=== PATIENT | male | born 1960 | race Caucasian/White ===

== ENCOUNTER 2018-06-20 20:35 | Inpatient (IN) | payer OTHER ==
[~2018-06-20] VITALS: Ht 177.8 cm; Wt 151.5 kg
[2018-06-20 20:35] VITALS: BP 161/93
--- NOTE | 2018-06-20 20:38 | NUR ---
PT GRETA ALS. TAKEN TO BED 9
--- NOTE | 2018-06-20 20:43 | NUR ---
X-Ray at bedside.
--- NOTE | 2018-06-20 20:45 | NUR ---
57 y/o M biba with c/o chest pain x 1 day. AAOx4. 11/21 pain, sharp and constant. Pain radiates to L shoulder. Numbness to L arm. R hand grasp greater than L hand grasp. tremor to R arm. c/o SOB. bilateral lung camacho clear. O2 saturation at 98% on room air. Bedrail x2 up. Bed in lowest postion. ERMD notified. Will continue to monitor.
--- NOTE | 2018-06-20 20:47 | NUR ---
Dr. Hernandez evaluating patient at bedside.
[2018-06-20] MEDS ORDERED: ASPI-1718 PO (21:00)
[2018-06-20] MEDS ORDERED: LANTUS SUBQ (21:00)
[2018-06-20] MEDS ORDERED: PRIM250T70 PO (21:00)
[2018-06-20] MEDS ORDERED: CLON0.1T42 PO (21:00)
[2018-06-20] MEDS ORDERED: OMEP20TC10 PO (21:00)
[2018-06-20] MEDS ORDERED: ACET-512 PO (21:00)
[2018-06-20] MEDS ORDERED: ACET-2619 PO (21:00)
[2018-06-20] MEDS ORDERED: SITA100T8 PO (21:00)
[2018-06-20] MEDS ORDERED: GABA300C PO (21:00)
[2018-06-20] MEDS ORDERED: ATOR10TA PO (21:00)
[2018-06-20] MEDS ORDERED: CARV12.5 PO (21:00)
[2018-06-20] MEDS ORDERED: METF1000 PO (21:00)
[2018-06-20 21:03] LABS: BASOPHILS # (AUTO) 0.1 K/uL (0.00-0.22); BASOPHILS % (AUTO) 0.7 % (0.0-2.0); EOSINOPHILS # (AUTO) 0.5 K/uL (0-0.4); EOSINOPHILS % (AUTO) 4.4 % (0.0-4.0); HEMATOCRIT 32.5 % (36-52); HEMOGLOBIN 10.3 g/dL (12.0-18.0); LYMPHOCYTES # (AUTO) 1.8 K/uL (2.0-11.5); LYMPHOCYTES % (AUTO) 15.4 % (20.5-51.1); MEAN CORPUSCULAR HEMOGLOBIN 22 pg (27-31); MEAN CORPUSCULAR HGB CONC 32 g/dL (33-37); MEAN CORPUSCULAR VOLUME 70.5 fL (80-94); MONOCYTES # (AUTO) 0.6 K/uL (0.8-1.0); MONOCYTES % (AUTO) 5.1 % (1.7-9.3); NEUTROPHILS # (AUTO) 8.7 K/uL (1.8-7.7); NEUTROPHILS % (AUTO) 74.4 % (42.2-75.2); PLATELET COUNT (AUTO) 336 K/uL (140-450); RED BLOOD CELL COUNT(AUTO) 4.61 MIL/uL (4.20-6.10); RED CELL DISTRIBUTION WIDTH 21.9 % (11.6-13.7); WHITE BLOOD COUNT (AUTO) 11.8 K/uL (4.8-10.8)
[2018-06-20 21:12] LABS: ANION GAP 9.8 (8-16); CARBON DIOXIDE 30.8 mmol/L (21-32); CREATININE 1.5 mg/dL (0.7-1.3); POTASSIUM 4.6 mmol/L (3.5-5.1)
[2018-06-20] MEDS ORDERED: MORPHINE SULFATE 4 MG/ML SYR IVP ONE (21:15)
[2018-06-20 21:18] LABS: ALBUMIN 2.7 g/dL (3.4-5.0); TOTAL BILIRUBIN 0.3 mg/dL (0.0-1.0)
[2018-06-20] MEDS ORDERED: NACL 0.9% 1,000 ML IV ONE (21:25)
--- NOTE | 2018-06-20 22:55 | NUR ---
RECEIVED REPORT FROM ED NURSE. PT AAOX4 LEFT SIDED WEAKNESS, NUMBNESS TO LEFT UPPER EXTREMITY/SHOULDER NOTED. PT STATES HE C/O CP, RADIATING TO LEFT SHOULDER PRESSURE. NSR 80-90S BPM, HYPERTENSIVE SBP 170S. NO EDEMA NOTED. +2 RADIAL PULSES, +1 PEDAL PULSES. ABD SOFT NON DISTENDED, LAST BM 06/20. PT VOIDING CLEAR YELLOW URINE. SKIN NON INTACT, MID LOWER ABD CLOSED WOUND NOTED. IV 20G TO R UPPER ARM NOTED. WILL UPDATE MD WILL CONTINUE TO MONITOR.
--- NOTE | 2018-06-20 22:57 | NUR ---
Patient will be admitted to care of . Admitted MST. Will go to room ICU 2 as telemetry overflow. VSS at time of transfer. Belongings list completed. Report to BE White. Transfer of care at this time.
[2018-06-20] MEDS ORDERED: NITROGLYCERIN 0.4 MG TAB SL PRN (23:35)
[2018-06-20] MEDS ORDERED: ACETAMINOPHEN 325 MG TAB PO PRN (23:35)
[2018-06-20] MEDS ORDERED: ONDANSETRON 4 MG/2 ML VIAL IVP PRN (23:35)
[2018-06-20] MEDS ORDERED: oxyCODONE/APAP 5/325 MG 1 TAB TAB PO PRN (23:55)
[2018-06-21] VITALS (9 sets, daily range): BP systolic 121–202; BP diastolic 62–113
--- NOTE | 2018-06-21 | NUR ---
CPAP EQUIPMENT PLACED AT BEDSIDE PER CPAP Q ORDERS. PATIENT STATES HE WILL CALL WHEN HES READY TO WEAR CPAP FOR BED. NO RESPIRATORY DISTRESS NOTED AT THIS TIME. WILL CONTINUE TO MONITOR. Addendum: 06/21/18 at 0627 by Tessa Boyce RT PATIENT STATES HE WEARS BIPAP AT NIGHT, NOT CPAP. WILL ADJUST SETTINGS ACCORDINGLY FOR PATIENT COMFORT AND TO MAINTAIN OXYGENATION PER ORDER. SATS >92%
[2018-06-21] MEDS ORDERED: CARVEDILOL 12.5 MG TAB PO SCH ×3 (00:30→21:00)
[2018-06-21] MEDS ORDERED: GABAPENTIN 300 MG CAP PO SCH (00:30)
[2018-06-21] MEDS: HYDROmorphone 1 MG/ML AMP IVP PRN ×2 (01:07→09:00)
--- NOTE | 2018-06-21 01:20 | NUR ---
TRANSPORTED TO CT SCAN.
--- NOTE | 2018-06-21 01:35 | NUR ---
PT TRANSPORTED BACK FROM CT.
--- NOTE | 2018-06-21 02:00 | NUR ---
PT AWAKE; DENIES CP @ THIS TIME. NO S/S OF ACUTE DISTRESS. WILL CONTINUE TO OBSERVE.
[2018-06-21] MEDS: SODIUM CHLORIDE FLUSH 10 ML SYR IVF SCH ×3 (05:28→21:00)
[2018-06-21 05:43] LABS: ALBUMIN 2.4 g/dL (3.4-5.0); ANION GAP 8.8 (8-16); CARBON DIOXIDE 30.5 mmol/L (21-32); CREATININE 1.3 mg/dL (0.7-1.3); POTASSIUM 4.3 mmol/L (3.5-5.1); TOTAL BILIRUBIN 0.3 mg/dL (0.0-1.0)
[2018-06-21] MEDS: oxyCODONE/APAP 5/325 MG 1 TAB TAB PO PRN ×2 (05:58→17:22)
--- NOTE | 2018-06-21 05:58 | NUR ---
PT C/O 07/22 PAIN MEDICATED WITH PRN OXYCODONE. WILL CONTINUE TO MONITOR.
[2018-06-21 06:26] LABS: BASOPHILS % (AUTO) 0.4 % (0.0-2.0); EOSINOPHILS # (AUTO) 0.5 K/uL (0-0.4); EOSINOPHILS % (AUTO) 5.1 % (0.0-4.0); HEMATOCRIT 30.9 % (36-52); LYMPHOCYTES # (AUTO) 1.6 K/uL (2.0-11.5); LYMPHOCYTES % (AUTO) 15.8 % (20.5-51.1); MEAN CORPUSCULAR HEMOGLOBIN 23 pg (27-31); MEAN CORPUSCULAR HGB CONC 32 g/dL (33-37); MEAN CORPUSCULAR VOLUME 70.6 fL (80-94); MONOCYTES # (AUTO) 0.5 K/uL (0.8-1.0); MONOCYTES % (AUTO) 5.3 % (1.7-9.3); NEUTROPHILS # (AUTO) 7.3 K/uL (1.8-7.7); NEUTROPHILS % (AUTO) 73.4 % (42.2-75.2); PLATELET COUNT (AUTO) 289 K/uL (140-450); RED BLOOD CELL COUNT(AUTO) 4.37 MIL/uL (4.20-6.10); RED CELL DISTRIBUTION WIDTH 21.8 % (11.6-13.7)
[2018-06-21] MEDS: INSULIN LISPRO SLIDING SCALE 100 UNITS/ML VIAL SUBQ PRN ×4 (06:27→21:38)
[2018-06-21] MEDS: BLOOD GLUCOSE MONITORING 1 DEV DEV FS SCH ×4 (06:28→21:36)
--- NOTE | 2018-06-21 06:40 | NUR ---
REASSESSED PAIN: PT NOW ASLEEP IN BED; FLACC 0. PT AROUSABLE DENIES PAIN @ THIS TIME
[2018-06-21] MEDS: cloNIDine 0.1 MG TAB PO PRN ×2 (06:43→17:30)
--- NOTE | 2018-06-21 07:20 | NUR ---
ENDORSED CARE TO DAY SHIFT FOR CONTINUITY OF CARE.
--- NOTE | 2018-06-21 07:40 | NUR ---
TRANSFERRED PATIENT TO TELEMETRY UNIT VIA WHEEL STEVEN, TELEMETRY BOX, BELONGINGS SENT WITH PATIENT Addendum: 06/21/18 at 0805 by Allison Walker RN CHAIR
--- NOTE | 2018-06-21 07:55 | NUR ---
REPORT GIVEN TO BUSINESS TRAINER. PATIENT ALERT ORIENTED, ON ROOM AIR 202 95%, SINUS 90 BPM, IV LINE RIGHT UPPER ARM IN SITU.
--- NOTE | 2018-06-21 07:56 | NUR ---
RECEIVED BEDSIDE REPORT FROM ICU NURSE. PATIENT IS AWAKE, ALERT AND ORIENTEDX4. NO SIGNS OF DISTRESS ON RA. PATIENT HAS WEAKNESS, AMBULATE W ASSIST. FALL RISK PROTOCOL IN PLACE, PATIENT HAS NO YELLOW GOWN, PATIENT IS OBESE. TELE MONITOR IN PLACE. SKIN IS INTACT. VLADIMIR 20G SL. CLEAN, DRY AND INTACT. PATIENT IS CONTINENT. BED IN LOW POSITION. CALL LIGHT WITHIN REACH. PATIENT ABLE TO MAKE NEEDS KNOWN
--- NOTE | 2018-06-21 08:37 | NUR ---
PATIENT HAS BEEN SCREENED AND CATEGORIZED HIGH NUTRITION RISK. PATIENT WILL BE SEEN WITHIN 1-2 DAYS OF ADMISSION. 06/21/18-06/22/[address]
[2018-06-21] MEDS: PRIMIDONE 50 MG TAB PO SCH ×2 (08:52→21:36)
[2018-06-21] MEDS: metFORMIN 500 MG TAB PO SCH ×2 (08:53→17:17)
[2018-06-21] MEDS: ASPIRIN 81 MG TAB.CHEW PO SCH (08:53)
--- NOTE | 2018-06-21 09:01 | NUR ---
ADMINISTERED MEDS. PATIENT TOLERATED WELL. GAVE PRN PAIN MED. EDUCATED ON SIDE EFFECTS. EKG DONE. WILL CONTINUE TO MONITOR THE PATIENT
--- NOTE | 2018-06-21 11:00 | NUR ---
patient sitting in bed. no signs of distress. will continue to monitor
--- NOTE | 2018-06-21 12:37 | NUR ---
PT SITTING UP IN BED EATING LUNCH. NO OBVIOUS SIGNS OF DISTRESS AND NO REQUESTS FROM PT.
--- NOTE | 2018-06-21 13:30 | NUR ---
administered [facility] med. patient tolerated well. will continue to monitor the patient
--- NOTE | 2018-06-21 13:34 | NUR ---
ARRANGED TRANSPORT WITH [facility], SOFTWARE ENGINEERING ANALYST TIME WILL 5 PM NOTIFIED SHANELLE LR
--- NOTE | 2018-06-21 15:45 | NUR ---
CALLED SPOKE WITH KAELYN NOTIFIED HER THAT DISCHARGE IS HOLD FOR TODAY AND PLACE IT WILL CALL FOR TOMORROW CAN USE THE SAME AUTH #.
--- NOTE | 2018-06-21 15:51 | NUR ---
PATIENT SITTING IN BED. NO SIGNS OF DISTRESS. WILL CONTINUE TO MONITOR
--- NOTE | 2018-06-21 15:52 | NUR ---
AUTH# FOR THE [facility] JODI [id number]
--- NOTE | 2018-06-21 16:23 | NUR ---
06/21/18 RD INITIAL ASSESSMENT COMPLETED PLEASE REFER TO NUTRITION ASSESSMENT UNDER CARE ACTIVITY FOR ESTIMATED NUTRITIONAL NEEDS. 1. CONTINUE CARDIAC AND CCHO 60 GM DIET TOLERATED 2. RD OFFER NUTRITION EDUCATION FOR DIABETES, PT DECLINED AT THE MOMENT. WILL FOLLOW UP ON NEXT VISIT 3. RD TO FOLLOW-UP 3-5 DAYS, MODERATE RISK ANNMARIE AUGUSTIN RD
--- NOTE | 2018-06-21 16:55 | NUR ---
SPOKE TO DR ALCANTARA, NO IV AVAILABLE TO DO CT ANGIOGRAM. SPOKE TO DR ALCANTARA. HE IS AWARE THAT THE PATIENT HAD A NORMAL EKG AND 3 NORMAL TROPONIN. HE SAID PATIENT IS OK TO BE DISCHARGED
--- NOTE | 2018-06-21 17:11 | NUR ---
CALLED [facility], SPOKE WITH FERDINAND PEARSON) PT IS GOING BACK TO ROOM 41-A. SET UP A TRANSPORTATION WITH [facility], SPOKE WITH RO, STATED THAT THE EARLIEST ETA IS AT 9:30 PM TONIGHT. SHANELLE-RN NURSE ASSIGNED MADE AWARE.
[2018-06-21] MEDS: INSULIN LANTUS 100 UNITS/ML 10 ML VIAL SUBQ SCH (17:20)
--- NOTE | 2018-06-21 18:00 | NUR ---
spoke to dr rodney about patient on feeling well, and blood pressure in 200s. he ordered hydralazine 10mg ivp q6hrs prn htn. coreg 12.5 bid, minoxidil 2.5mg po bid, lisinopril 5mg daily. dr rodney aware patient is hard stick he asked if we can try a EJ.
--- NOTE | 2018-06-21 18:10 | NUR ---
ER SAID NO TO TRY EJ, PATIENTS VEINS ARE VERY DELICATE AND BLOW. BE CLARK DOES NOT FEEL COMFORTABLE. CALLED DR OLSON I TOLD HIM [facility]BER RECOMMENDS CENTRAL LINE. HE SAID HE WILL CALL DR ALCANTARA
--- NOTE | 2018-06-21 18:30 | NUR ---
DR ALCANTARA CALLED AND ASKED ABOUT THE PATIENT. HE SAID TO WAIT FOR DR NSACIMENTO AND TO CANCEL DISCHARGE FOR NOW. HE DOES NOT WANT CENTRAL LINE AT THIS TIME. HE JUST SAID TO ORDER HYDRAZALINE 25MG PO Q6HRS PRN HTN INSTEAD. AND NO LISINOPRIL BECAUSE PATIENT IS ALLERGIC
[2018-06-21] MEDS ORDERED: hydrALAZINE 20 MG/ML VIAL IVP PRN (18:35)
[2018-06-21] MEDS ORDERED: hydrALAZINE 25 MG TAB PO PRN (18:45)
[2018-06-21] MEDS ORDERED: MINOXIDIL 2.5 MG TAB PO SCH ×2 (19:00→21:00)
--- NOTE | 2018-06-21 19:14 | NUR ---
gave bedside report to agricultural equipment salesperson nurse. patient endorsed in stable condition
--- NOTE | 2018-06-21 19:15 | NUR ---
RECEIVED BEDSIDE REPORT FROM DAY SHIFT RN. PATIENT IS STABLE AND SLEEPING IN BED. NO SIGNS OF DISTRESS ON RA. SAFETY PRECAUTIONS IN PLACE. CALL LIGHT IN REACH. WILL CONTINUE TO MONITOR.
--- NOTE | 2018-06-21 19:41 | NUR ---
called [facility], transport was cancelled
--- NOTE | 2018-06-21 19:43 | NUR ---
called [facility] to let them know discharge is cancelled. josefina rasheed, is informed.
--- NOTE | 2018-06-21 20:29 | NUR ---
RECEIVED PATIENT ON ROOM AIR. PULSE OX SAT 97%. NO RESPIRATORY DISTRESS NOTED AT THIS TIME. WILL CONTINUE TO MONITOR.
[2018-06-21] MEDS: ATORVASTATIN 20 MG TAB PO SCH (21:35)
--- NOTE | 2018-06-21 21:35 | NUR ---
ADMINISTERED SCHEDULED MEDICATIONS. PATIENT TOLERATED WELL. PATIENT SITTING UP IN BED, NO SIGNS OF DISTRESS ON RA. SAFETY PRECAUTIONS IN PLACE. WILL CONTINUE TO MONITOR.
[2018-06-22] VITALS: BP 149/79
--- NOTE | 2018-06-22 00:10 | NUR ---
PATIENT WAS SLEEPING IN BED. NO SIGNS OF DISTRESS ON RA. VITALS STABLE, NO C/O PAIN AT THIS TIME.
--- NOTE | 2018-06-22 01:00 | NUR ---
RECEIVED BEDSIDE REPORT FROM RHEA LR. PATIENT SLEEPING RESPIRATION EVEN UNLABORED ON ROOM AIR. NO DISTRESS NOTED. WILL CONTINUE TO MONITOR.
[2018-06-22] MEDS: SODIUM CHLORIDE FLUSH 10 ML SYR IVF SCH ×3 (02:14→21:11)
--- NOTE | 2018-06-22 03:30 | NUR ---
PATIENT ABDOMINAL ABSCESS HAD OPEN AND ITS LEAKING YELLOW FLUIDS WITH PUS. APPLIED ABDOMINAL PADS. WILL CONTINUE TO MONITOR.
--- NOTE | 2018-06-22 03:45 | NUR ---
RECHECKED PATIENT. PATIENT DRESSING SATURATED. APPLIED A NEW ABDOMINAL PAD. WILL CONTINUE TO MONITOR
[2018-06-22 04:00] VITALS: BP 193/94
--- NOTE | 2018-06-22 04:00 | NUR ---
VITALS WERE TAKEN. PATIENT BP 193/94 HR 90 PRN CATAPRES GIVEN PER ORDER. WILL CONTINUE TO MONITOR
[2018-06-22] MEDS: cloNIDine 0.1 MG TAB PO PRN (04:29)
[2018-06-22] MEDS: INSULIN LISPRO SLIDING SCALE 100 UNITS/ML VIAL SUBQ PRN ×4 (06:01→21:00)
[2018-06-22] MEDS: BLOOD GLUCOSE MONITORING 1 DEV DEV FS SCH ×5 (06:09→21:01)
--- NOTE | 2018-06-22 06:43 | NUR ---
PATIENT BLOOD PRESSURE STILL HIGH 187/90. PRN HYDRALAZINE ADMINISTERED PER ORDER. WILL CONTINUE TO MONITOR
[2018-06-22 07:57] LABS: BASOPHILS % (AUTO) 0.4 % (0.0-2.0); EOSINOPHILS # (AUTO) 0.5 K/uL (0-0.4); HEMOGLOBIN 10.4 g/dL (12.0-18.0); LYMPHOCYTES # (AUTO) 0.9 K/uL (2.0-11.5); MEAN CORPUSCULAR HEMOGLOBIN 23 pg (27-31); MEAN CORPUSCULAR HGB CONC 32 g/dL (33-37); MEAN CORPUSCULAR VOLUME 70.4 fL (80-94); MONOCYTES # (AUTO) 0.5 K/uL (0.8-1.0); MONOCYTES % (AUTO) 4.6 % (1.7-9.3); NEUTROPHILS # (AUTO) 8.8 K/uL (1.8-7.7); PLATELET COUNT (AUTO) 299 K/uL (140-450); RED BLOOD CELL COUNT(AUTO) 4.55 MIL/uL (4.20-6.10); RED CELL DISTRIBUTION WIDTH 21.6 % (11.6-13.7); WHITE BLOOD COUNT (AUTO) 10.7 K/uL (4.8-10.8)
[2018-06-22 08:00] VITALS: BP 175/93
[2018-06-22] MEDS ORDERED: CARVEDILOL 12.5 MG TAB PO SCH ×2 (08:00→09:49)
[2018-06-22 08:04] LABS: ALBUMIN 2.6 g/dL (3.4-5.0); ANION GAP 11.3 (8-16); CARBON DIOXIDE 29.4 mmol/L (21-32); POTASSIUM 3.7 mmol/L (3.5-5.1); TOTAL BILIRUBIN 0.4 mg/dL (0.0-1.0)
--- NOTE | 2018-06-22 08:14 | NUR ---
RECEIVED BEDSIDE REPORT FROM CHARGE NURSE YULIA. PATIENT RESTING IN BED WATCHING TV. RESPIRATIONS EVEN AND UNLABORED ON ROOM AIR. NO DISTRESS NOTED. PT IS AAOX 4. PT HAS LEAKING ABSCESS WOUND ON ABD. DRESSING IN PLACE. DY AND INTACT. PT STATES SOME CHEST PAIN AT THIS TIME. MEDICATION SCHEDULED FOR ANGINA PAIN TO BE ADMINISTERED FOR MORNING SCHEDULED MEDS. PT DENIES PAIN AT THIS TIME. DISCUSSED PLAN OF CARE WITH PT. PT VERBALIZED UNDERSTANDING. BED IN LOW POSITION, CALL LIGHT WITHIN REACH. WILL ROUND FREQUENTLY ON PT.
[2018-06-22 09:32] LABS: EOSINOPHILS % (AUTO) 4.2 % (0.0-4.0); LYMPHOCYTES % (AUTO) 8.1 % (20.5-51.1); NEUTROPHILS % (AUTO) 82.7 % (42.2-75.2)
[2018-06-22] MEDS: GABAPENTIN 300 MG CAP PO SCH ×3 (09:43→17:20)
[2018-06-22] MEDS: metFORMIN 500 MG TAB PO SCH ×2 (09:48→17:00)
[2018-06-22] MEDS: PRIMIDONE 50 MG TAB PO SCH ×2 (09:48→21:08)
[2018-06-22] MEDS: ASPIRIN 81 MG TAB.CHEW PO SCH (09:49)
[2018-06-22] MEDS ORDERED: MINOXIDIL 2.5 MG TAB PO SCH (09:50)
--- NOTE | 2018-06-22 09:51 | NUR ---
ADMINISTERED MORNING MEDS TO PT. PT TOLERATED THEM WELL. PT VERBALIZING PAIN IN LOWER LEGS AND ON HIS LEFT SIDE. WILL MEDICATE PT. ALL OTHER NEEDS MET. NO SOB OR CHEST PAIN AT THIS TIME. BED IN LOW POSITION, CALL LIGHT WITHIN REACH. WILL CONTINUE TO ROUND FREQUENTLY ON PT.
[2018-06-22] MEDS ORDERED: CARV12.52 PO (10:03)
[2018-06-22] MEDS ORDERED: hydrALAZINE 25 MG TAB PO SCH (10:14)
[2018-06-22] MEDS: oxyCODONE/APAP 5/325 MG 1 TAB TAB PO PRN ×2 (10:59→17:19)
--- NOTE | 2018-06-22 11:37 | NUR ---
PT BEING PREPPED FOR MIDLINE CENTRAL LINE INSERTION. CONSENT FORM SIGNED. WILL COMPLETE TIME OUT WITH PICC LINE NURSE. PT IN STABLE CONDITION AT THIS TIME.
[2018-06-22 12:00] VITALS: BP 147/78
[2018-06-22] MEDS ORDERED: CLINDAMYCIN 600 MG in DEXTROSE 5% 50 ML IV SCH (12:00)
--- NOTE | 2018-06-22 12:37 | NUR ---
PT WENT IN FOR CT OF THE ABD WITH CONTRAST. PT TOLERATED TEST WELL. PER TECH ORDERS, NO METFORMIN CAN BE GIVEN TO PT UNTIL SATURDAY 06/24 AFTER 1300.
--- NOTE | 2018-06-22 12:50 | NUR ---
PER PIPO PICC NURSE, OK TO USE MIDLINE RIGHT UPPER ARM.
--- NOTE | 2018-06-22 13:02 | NUR ---
PT RESTING IN BED. CAME BACK FROM CT AND IS NOW HAVING A LATE LUNCH. PT IN STABLE CONDITION. DENIES PAIN OR SOB AT THIS TIME. BED IN LOW POSITION, CALL LIGHT WITHIN REACH. WILL ROUND FREQUENTLY.
[2018-06-22] MEDS: CLINDAMYCIN PHOS 600MG/D5W PM 50 ML IV SCH ×2 (13:25→17:20)
--- NOTE | 2018-06-22 15:57 | NUR ---
PT SITTING UP IN BED WATCHING TV. NO REPORT OF PAIN OR DISTRESS AT THIS TIME. WILL CONTINUE TO ROUND FREQUENTLY.
[2018-06-22 16:00] VITALS: BP 135/93
[2018-06-22] MEDS: INSULIN LANTUS 100 UNITS/ML 10 ML VIAL SUBQ SCH (17:18)
[2018-06-22] MEDS: CARVEDILOL 12.5 MG TAB PO SCH (17:19)
--- NOTE | 2018-06-22 17:48 | NUR ---
PT RESTING EATING DINNER. ALL NEEDS CURRENTLY MET. BED IN LOW POSITION, CALL LIGHT WITHIN REACH
--- NOTE | 2018-06-22 19:45 | NUR ---
ENDORSED PT TO LANGUAGE ASSISTANT FOR CONTINUITY OF CARE. PT IN STABLE CONDITION AT THIS TIME.
--- NOTE | 2018-06-22 19:46 | NUR ---
RECEIVED BEDSIDE REPORT FROM AM SHIFT, PATIENT IN BED SEMI SENA'S POSITION. PT IS AAOX 4. RESPIRATIONS EVEN AND UNLABORED ON ROOM AIR. NO DISTRESS NOTED. PT HAS LEAKING ABSCESS WOUND ON ABD. DRESSING IN PLACE, INTACT. PT NO CHEST PAIN . PT DENIES PAIN AT THIS TIME. POC REVIEWED WITH PT. PT VERBALIZED UNDERSTANDING. BED IN LOW POSITION, CALL LIGHT WITHIN REACH. WILL CONTINUE TO MONITOR
--- NOTE | 2018-06-22 19:47 | NUR ---
PT HAS A MIDLINE 2 LUMEN, PATENT, SALINE LOCK
[2018-06-22 20:00] VITALS: BP 140/71
[2018-06-22] MEDS: ATORVASTATIN 20 MG TAB PO SCH (21:06)
[2018-06-22] MEDS: MINOXIDIL 2.5 MG TAB PO SCH (21:08)
[2018-06-22] MEDS: hydrALAZINE 25 MG TAB PO SCH (21:12)
--- NOTE | 2018-06-22 23:58 | NUR ---
CRITICAL LAB REPORTING BY JR MELENDREZ, MRSA NARES POSITIVE. WILL INFORM IN THE AM. CHARGE NURSE INFORMED
[2018-06-23] VITALS: BP 141/74
--- NOTE | 2018-06-23 | NUR ---
INFORMED RT THAT PT'S REQUESTING FOR BIPAP
--- NOTE | 2018-06-23 01:00 | NUR ---
PT ON BIPAP, TOLERATING WELL
[2018-06-23] MEDS: CLINDAMYCIN PHOS 600MG/D5W PM 50 ML IV SCH ×4 (01:14→17:24)
[2018-06-23 04:00] VITALS: BP 148/69
--- NOTE | 2018-06-23 04:00 | NUR ---
PTS BP 148/ 69, HR 84, WILL CONTINUE TO MONITOR
[2018-06-23] MEDS: SODIUM CHLORIDE FLUSH 10 ML SYR IVF SCH ×2 (05:30→14:27)
[2018-06-23] MEDS: BLOOD GLUCOSE MONITORING 1 DEV DEV FS SCH ×3 (05:59→16:41)
[2018-06-23] MEDS: INSULIN LISPRO SLIDING SCALE 100 UNITS/ML VIAL SUBQ PRN ×3 (06:01→17:29)
--- NOTE | 2018-06-23 07:13 | NUR ---
PT IN STABLE CONDITION ENDORSED TO AM SHIFT NURSE FOR CONTINUITY OF CARE. PT HAS NO COMPLAINTS OF PAIN, NO SOB
--- NOTE | 2018-06-23 07:19 | NUR ---
RECEIVED BEDSIDE REPORT FROM LOADING AND UNLOADING SUPERVISOR RN. PATIENT RESTING IN BED WATCHING TV. RESPIRATIONS EVEN AND UNLABORED ON ROOM AIR. NO DISTRESS NOTED. PT IS AAOX 4. PT HAS LEAKING ABSCESS WOUND ON ABD. DRESSING IN PLACE. DRY AND INTACT. PT DENIES CHEST PAIN. WILL ADMIN MORNING SCHEDULED MEDS. PT DENIES SOB. PRT DOES STATE HE HAS PAIN IN THE ABD. WILL MEDICATE. DISCUSSED PLAN OF CARE WITH PT. PT VERBALIZED UNDERSTANDING. BED IN LOW POSITION, CALL LIGHT WITHIN REACH. WILL ROUND FREQUENTLY ON PT.
[2018-06-23 08:00] VITALS: BP 166/82
[2018-06-23] MEDS: metFORMIN 500 MG TAB PO SCH ×2 (08:00→17:00)
[2018-06-23] MEDS ORDERED: CHLORHEXADINE GLUC 2% CLOTH TP SCH (09:00)
[2018-06-23] MEDS ORDERED: MUPIROCIN CA NASAL 2% 1GM TUBE NS SCH (09:00)
[2018-06-23] MEDS: GABAPENTIN 300 MG CAP PO SCH ×3 (09:24→17:23)
[2018-06-23] MEDS: oxyCODONE/APAP 5/325 MG 1 TAB TAB PO PRN (09:24)
[2018-06-23] MEDS: hydrALAZINE 25 MG TAB PO SCH (09:25)
[2018-06-23] MEDS: ASPIRIN 81 MG TAB.CHEW PO SCH (09:25)
[2018-06-23] MEDS: MINOXIDIL 2.5 MG TAB PO SCH (09:26)
[2018-06-23] MEDS: CARVEDILOL 12.5 MG TAB PO SCH ×2 (09:26→17:23)
[2018-06-23] MEDS: PRIMIDONE 50 MG TAB PO SCH (09:26)
--- NOTE | 2018-06-23 09:38 | NUR ---
ADMINISTERED MORNING MEDS TO PT. PT TOLERATED THEM WELL. PT ALSO COMPLAINED OF 6/10 PAIN. PAIN MEDS WERE ALSO GIVEN. ALL NEEDS CURRENTLY MET. WILL ROUND FREQUENTLY ON PT.
[2018-06-23] MEDS ORDERED: DEXT150S16 IV (11:31)
--- NOTE | 2018-06-23 11:47 | NUR ---
PT RESTING IN BED. BS WAS 276. WILL GIVE 4 UNITS INSULIN FOR COVERAGE BEFORE LUNCH MEAL. ALL PT NEEDS CURRENTLY MET. WILL ROUND FREQUENTLY ON PT. Addendum: 06/23/18 at 1459 by Pat Villegas RN BS WAS [id number].
--- NOTE | 2018-06-23 11:54 | NUR ---
CALLED [facility] [phone], REGARDING REQUEST FOR TRANSFER FOR SURGICAL CONSULT DR VILLAFUERTE. WILL SEND FACE SHEET, H[employer]P PROGRESS NOTES VIA FAX TO [phone] PER REQUEST.
[2018-06-23 12:00] VITALS: BP 153/83
[2018-06-23] MEDS ORDERED: LEVOFLOXACIN 750 MG/D5W PREMIX 150 ML IV SCH (12:00)
[2018-06-23] MEDS ORDERED: PIPER/TAZO 3.375GM/D5W PREMIX 50 ML IV SCH (12:00)
--- NOTE | 2018-06-23 12:30 | NUR ---
[facility] CALLED, PATIENT CAN NOT BE ACCEPTED, PER [facility], DR VILLAFUERTE IS OK FOR PT TO BE TREATED HERE AND SENT HOME AND FOLLOW UP WITH HIM OUTPATIENT. NO NEED TO INPATIENT TRANSFER PER DR VILLAFUERTE. WILL PAGE DR LE TO NOTIFY.
--- NOTE | 2018-06-23 13:06 | NUR ---
NO CALL BACK FROM DR ERICKSON (PEDIATRIC NP FOR DR LE), PAGED AGAIN.
[2018-06-23 13:39] LABS: BASOPHILS % (AUTO) 0.5 % (0.0-2.0); EOSINOPHILS # (AUTO) 0.3 K/uL (0-0.4); EOSINOPHILS % (AUTO) 3.8 % (0.0-4.0); HEMATOCRIT 30.7 % (36-52); MEAN CORPUSCULAR HEMOGLOBIN 23 pg (27-31); MEAN CORPUSCULAR HGB CONC 33 g/dL (33-37); MEAN CORPUSCULAR VOLUME 70.4 fL (80-94); MONOCYTES # (AUTO) 0.4 K/uL (0.8-1.0); MONOCYTES % (AUTO) 4.4 % (1.7-9.3); NEUTROPHILS # (AUTO) 7.1 K/uL (1.8-7.7); PLATELET COUNT (AUTO) 309 K/uL (140-450); RED BLOOD CELL COUNT(AUTO) 4.36 MIL/uL (4.20-6.10); RED CELL DISTRIBUTION WIDTH 21.9 % (11.6-13.7); WHITE BLOOD COUNT (AUTO) 8.8 K/uL (4.8-10.8)
--- NOTE | 2018-06-23 13:42 | NUR ---
DR LE CALLED BACK, NOTIFIED OF DENIAL FROM [facility], DR LE STATES ACCEPTING WILL BE DR FAM AT [facility], [facility] STUDIO ARTIST AT [facility] CALLED AT [phone] FAM, SHE WILL ARRANGE ADMISSION AND CALL US BACK.
[2018-06-23 13:46] LABS: ANION GAP 11.2 (8-16); CARBON DIOXIDE 29.5 mmol/L (21-32); CREATININE 1.3 mg/dL (0.7-1.3); POTASSIUM 3.7 mmol/L (3.5-5.1)
[2018-06-23 13:53] LABS: NEUTROPHILS % (AUTO) 80.3 % (42.2-75.2)
--- NOTE | 2018-06-23 14:56 | NUR ---
PT ASLEEP IN BED. NO SIGNS OF DISTRESS OR PAIN AT THIS TIME. WILL CONTINUE TO ROUND FREQUENTLY ON PT
--- NOTE | 2018-06-23 15:07 | NUR ---
NO BED YET AT [facility].
--- NOTE | 2018-06-23 15:58 | NUR ---
PER [facility], ROOM 599B READY FOR PT. CALL [phone] FOR REPORT, EMT TO STOP BY ER FOR REGISTRATION, WILL ARRANGE TRANSPORT.
[2018-06-23 16:00] VITALS: BP 153/85
--- NOTE | 2018-06-23 16:43 | NUR ---
[facility] REGAN ARRANGED, SPOKE TO CURT HERRING ANTENNA MACHINE OPERATOR IN 90-120MIN ETA 1830 - 1900.
[2018-06-23] MEDS: INSULIN LANTUS 100 UNITS/ML 10 ML VIAL SUBQ SCH (17:29)
--- NOTE | 2018-06-23 18:15 | NUR ---
PT TRANSFERRED TO [facility] FOR HIGHER LEVEL OF CARE. PT DISCHARGE TEACHING DONE AND PAPERWORK SIGNED. PT VERBALIZED UNDERSTANDING OF TEACHING. PT WRIST BANDS REMOVED AND PLACED IN SHRED BIN. ALL PERSONAL BELONGINGS TAKEN WITH PT. WOUND DRESSING DONE BEFORE D/C AND D/C PICTURE TAKEN. PT LEFT WITH MIDLINE CENTRAL LINE IN RIGHT UPPER ARM. CALLED [facility] AND GAVE REPORT TO NURSE OVIEDO. CD OF IMAGING SENT IN DISCHARGE FOLDER. PT LEFT IN SABLE CONDITION.
--- NOTE | 2018-06-24 11:48 | NUR ---
WOUND CARE EVALUATION NOT DONE. PT. DISCHARGED.
== END 2018-06-23 18:15 | disposition short-term general hospital (02) | DRG 602 ==
LOC: MED 20:35 → MIC 22:38 → MTU 06-21 07:44
PROVIDERS: ADMIT Internal Medicine Pulmonary Disease; ATTEND Internal Medicine Pulmonary Disease
PROC: 5A09357 Assistance with Respiratory Ventilation, Less than 24 Consecutive Hours, Continuous Positive Airway Pressure (ICD-10-PCS; 2018-06-21)
PROC: 05HY33Z Insertion of Infusion Device into Upper Vein, Percutaneous Approach (ICD-10-PCS; principal; 2018-06-22)
PROC: B54MZZA Ultrasonography of Right Upper Extremity Veins, Guidance (ICD-10-PCS; 2018-06-22)
PROC: 5A09357 Assistance with Respiratory Ventilation, Less than 24 Consecutive Hours, Continuous Positive Airway Pressure (ICD-10-PCS; 2018-06-23)
DX: L02.211 Cutaneous abscess of abdominal wall (principal); N17.0 Acute kidney failure with tubular necrosis; Z68.42 Body mass index [BMI] 45.0-49.9, adult; E44.1 Mild protein-calorie malnutrition; R07.89 Other chest pain; G89.29 Other chronic pain; E11.9 Type 2 diabetes mellitus without complications; E66.01 Morbid (severe) obesity due to excess calories; M19.90 Unspecified osteoarthritis, unspecified site; D64.9 Anemia, unspecified; I11.9 Hypertensive heart disease without heart failure; Z79.4 Long term (current) use of insulin; Z79.82 Long term (current) use of aspirin; Z86.73 Personal history of transient ischemic attack (TIA), and cerebral infarction without residual deficits
CPT/HCPCS: 36415; 70450; 71045; 80048; 80053; 82948; 83036; 83880; 84484; 85025; 87070; 87075; 87081; 87186; 93005; 94660; 96361; 96374; 99285; C1751; J1170; J1815; J1956; J2270; J2405; J2543; J3490; J7030; J7060; Q0092; Q9967

== ENCOUNTER 2019-01-01 11:24 | Emergency (ER) | payer OTHER ==
[~2019-01-01] VITALS: Ht 177.8 cm; Wt 161.5 kg
[~2019-01-01 11:24] MED LIST: ACET-2619 PO; ACET-512 PO; ASPI-1718 PO; ATOR10TA PO; CARV12.52 PO; CLON0.1T42 PO; DEXT150S16 IV; GABA300C PO; LANTUS SUBQ; METF1000 PO; OMEP20TC10 PO; PRIM250T70 PO; SITA100T8 PO
[2019-01-01 11:35] VITALS: BP 179/100
[2019-01-01] MEDS: HYDROcodone/APAP 10/325 MG 1 TAB TAB PO SCH (13:21)
[2019-01-01] MEDS: HYDROmorphone PFS 2 MG/ML SYR IM ONE (14:49)
[2019-01-01] MEDS: oxyCODONE/APAP 5/325 MG 1 TAB TAB PO ONE (16:31)
[2019-01-01 17:39] VITALS: BP 181/90
== END 2019-01-01 17:43 | disposition home or self-care (01) ==
LOC: MED 11:24
DX: S40.012A Contusion of left shoulder, initial encounter (principal); R25.1 Tremor, unspecified; E11.9 Type 2 diabetes mellitus without complications; K21.9 Gastro-esophageal reflux disease without esophagitis; I10 Essential (primary) hypertension; Z86.73 Personal history of transient ischemic attack (TIA), and cerebral infarction without residual deficits; Z79.899 Other long term (current) drug therapy; Z79.2 Long term (current) use of antibiotics; Z79.891 Long term (current) use of opiate analgesic; Z79.4 Long term (current) use of insulin; Z79.82 Long term (current) use of aspirin; Z88.8 Allergy status to other drugs, medicaments and biological substances; W06.XXXA Fall from bed, initial encounter; Y93.89 Activity, other specified; Y92.89 Other specified places as the place of occurrence of the external cause; Y99.8 Other external cause status
CPT/HCPCS: 70450; 72125; 72131; 73030; 96372; 99284; J1170; Q0092